=== PATIENT | female | born 1975 | race Caucasian/White ===

== ENCOUNTER 2017-05-09 12:53 | Emergency (ER) | payer OTHER ==
[2017-05-09 13:00] VITALS: RESP 16
--- NOTE | 2017-05-09 14:51 | EDPHY ---
H & P Time Seen by Provider: 05/09/17 14:45 HPI/ROS: CHIEF COMPLAINT: Left calf pain times 10 days HISTORY OF PRESENT ILLNESS: 42-year-old female generally healthy no vasculopathy history complaining of 10 days of left atraumatic calf pain which started while she was running. Described as 10 days of a "Charley horse "feeling. She went to see an orthopedic surgeon today and was referred to the ER for evaluation of possible DVT. No paresthesia. No discoloration. No trauma no fall. PHYSICAL EXAM (Prior to examination, patient consented to physical exam, hands were washed and my usual and customary physical exam procedures followed) 1) GENERAL: Well-developed, well-nourished, alert and oriented. Appears to be in no acute distress. 2) HEAD: Normocephalic 3) HEENT: sclera anicteric 4) LUNGS: Breathing comfortably. 5) SKIN: intact 6) MUSCULOSKELETAL: negative Homans. No palpable cord. Neck is soft compartments. Distal DP PT pulses present and brisk. Capillary refill is less than 2 sec. Dorsiflexion plantar flexion elicits no pain. Smoking Status: Never smoked Constitutional: Initial Vital Signs Temperature (C) 36.5 C 05/09/17 12:58 Heart Rate 72 05/09/17 12:58 Respiratory Rate 16 05/09/17 12:58 Blood Pressure 138/90 H 05/09/17 12:58 O2 Sat (%) 99 05/09/17 12:58 O2 Delivery Mode Room Air Allergies/Adverse Reactions: vancomycin Allergy (Severe, Verified 03/02/16 18:04) Other-Enter Comments Home Medications: Medication Instructions Recorded Control 03/02/16 MDM/Departure - [facility] ED Course/Re-evaluation: 2:50 p.m.: Ultrasound left lower extremity negative per Dr. Roblero interpretation. Patient has been updated with results. Doubt arterial occlusion. Doubt cellulitis. Doubt compartment syndrome. Recommend she follow up with Orthopedics. Usual and customary orthopedic precautions instructions provided. She feels comfortable with this plan Care of patient under supervision of secondary supervising physician Dr Hendricks - Depart Disposition: Home, Routine, Self-Care Clinical Impression: Pain of left calf Condition: Good Instructions: Muscle Cramp (ED) Additional Instructions: Return to the ER if you develop new or worsening symptoms, if you develop discoloration, or any other symptoms that concern you Referrals: Ken Drake MD [Medical Doctor] - 2-3 days, call for appt.
[2017-05-09 15:05] VITALS: BP 141/84; PULSE 79; TEMP 96.8; O2SAT 96
== END 2017-05-09 15:05 | disposition home or self-care (01) ==
DX: M79.662 Pain in left lower leg (principal)